=== PATIENT | male | born 1990 | race African-American/Black ===

== ENCOUNTER 2017-05-04 12:57 | Emergency (ER) | payer OTHER ==
[~2017-05-04] VITALS: Ht 182.9 cm; Wt 97.0 kg
[~2017-05-04 12:57] MED LIST: AMOXICILLIN875 MG PO; BACTRIM,SEPT1 TABLET PO; BACTROBAN OINTM22 GM TP; CLINDAMYCIN HC300 MG PO; KEFLEX500 MG PO
[2017-05-04 13:20] VITALS: BP 154/88
== END 2017-05-04 14:56 | disposition home or self-care (01) ==
LOC: EME 12:57
DX: R53.1 Weakness (principal); R11.0 Nausea; R50.9 Fever, unspecified; J34.89 Other specified disorders of nose and nasal sinuses; R53.83 Other fatigue; Z87.891 Personal history of nicotine dependence
CPT/HCPCS: 71046; 99281; 99283

== ENCOUNTER 2017-10-10 11:32 | Emergency (ER) | payer OTHER ==
[~2017-10-10] VITALS: Ht 182.9 cm; Wt 104.0 kg
[2017-10-10] MEDS ORDERED: VOLTAREN 1% GE100 GM TP (15:10)
[2017-10-10] MEDS ORDERED: BACLOFEN10 MG PO (15:10)
[2017-10-10] MEDS ORDERED: LIDODERM 5% P1 PATCH TD (15:10)
[2017-10-10] MEDS ORDERED: MOTRIN800 MG PO (15:10)
[2017-10-10 15:19] VITALS: BP 136/77
== END 2017-10-10 15:19 | disposition home or self-care (01) ==
LOC: EME 11:32
DX: S16.1XXA Strain of muscle, fascia and tendon at neck level, initial encounter (principal); M79.631 Pain in right forearm; V43.3 Unspecified car occupant injured in collision with car, pick-up truck or van in nontraffic accident; Y93.84 Activity, sleeping; Y92.481 Parking lot as the place of occurrence of the external cause; F17.200 Nicotine dependence, unspecified, uncomplicated
CPT/HCPCS: 72040; 73090; 99281; 99284